=== PATIENT | female | born 1985 | race Caucasian/White ===

== ENCOUNTER 2018-05-16 13:03 | Emergency (ER) | payer SELFPAY, MEDICAID ==
[2018-05-16] MEDS: METOCLOPRAMIDE 10 MG INJ IV (13:40)
[2018-05-16] MEDS: HYDROmorphONE 1 MG/ML SYG IV (13:40)
[2018-05-16] MEDS: SOD CHLORIDE 0.9% 1,000 ML IV (13:40)
[2018-05-16 13:41] LABS: ADD MAN DIFF? NO
[2018-05-16] MEDS: DIPHENHYDRAMINE 50 MG INJ IV (13:41)
[2018-05-16 13:43] LABS: BASOPHIL # 0.1 10^3/ul (0.0-0.1); EOSINOPHILS # 0.2 10^3/ul (0.0-0.5); EOSINOPHILS % 2.8 % (0.0-7.0); HEMATOCRIT 39.7 % (37.0-47.0); HEMOGLOBIN 13.3 g/dl (12.0-16.0); LYMPHOCYTES # 2.4 10^3/ul (0.8-2.9); LYMPHOCYTES % 29.4 % (15.0-51.0); MEAN CORPUSCULAR HEMOGLOBIN 27.7 pg (29.0-33.0); MEAN CORPUSCULAR HGB CONC 33.5 g/dl (32.0-37.0); MEAN CORPUSCULAR VOLUME 82.5 fl (82.0-101.0); MEAN PLATELET VOLUME 12.5 fl (7.4-10.4); MONOCYTE # 0.4 10^3/ul (0.3-0.9); NEUTROPHIL # 4.9 10^3/ul (1.6-7.5); NEUTROPHILS % 61.5 % (39.0-77.0); PLATELET COUNT 229 10^3/UL (140-415); RED BLOOD COUNT 4.81 10^6/ul (4.20-5.40); RED CELL DISTRIBUTION WIDTH 13.1 % (11.5-14.5)
[2018-05-16 14:02] LABS: INR 0.96; PROTIME 12.9 Sec (11.9-14.9)
[2018-05-16 14:03] LABS: PARTIAL THROMBOPLASTIN TIME 29.1 Sec (23.0-35.0)
[2018-05-16 14:04] LABS: ANION GAP 14 (5-13); BLOOD UREA NITROGEN 17 mg/dl (7-20); CALCIUM 9.5 mg/dl (8.4-10.2); CARBON DIOXIDE 22 mmol/L (21-31); CHLORIDE 102 mmol/L (97-110); CREATININE 0.43 mg/dl (0.44-1.00); Estimated GFR > 60 mL/min (>60); GLUCOSE 191 mg/dl (70-220); POTASSIUM 3.8 mmol/L (3.5-5.1); SODIUM 138 mmol/L (135-144)
== END 2018-05-16 15:50 | disposition home or self-care (01) ==
LOC: E/R 13:03
DX: G43.909 Migraine, unspecified, not intractable, without status migrainosus (principal); I10 Essential (primary) hypertension
CPT/HCPCS: 36415; 70450; 80048; 84703; 85025; 85610; 85730; 96374; 96375; 99285-25

== ENCOUNTER 2018-12-23 10:30 | Emergency (ER) | payer MEDICAID | END 2018-12-23 12:43 | disposition home or self-care (01) | LOC: FTE 10:30 | DX: M77.8 Other enthesopathies, not elsewhere classified (principal); I10 Essential (primary) hypertension | CPT/HCPCS: 29125; 73110-LT; 99283-25 ==